=== PATIENT | male | born 1965 | race Caucasian/White ===

== ENCOUNTER 2023-09-05 09:16 | Emergency (ER) | payer OTHER ==
[~2023-09-05] VITALS: Ht 177.8 cm; Wt 77.1 kg
[2023-09-05] MEDS ORDERED: ALBUTEROL FS 2.5 MG/3 ML VIAL.NEB ONE (09:44)
[2023-09-05] MEDS ORDERED: predniSONE 20 MG TABLET ONE (09:44)
[2023-09-05] MEDS ORDERED: IPRATROPIUM NEB FS 0.5 MG/2.5 ML AMPUL.NEB ONE (09:44)
[2023-09-05 09:50] VITALS: O2SAT 94
[2023-09-05] MEDS ORDERED: IPRATROPIUM NEB FS 0.5 MG/2.5 ML AMPUL.NEB NEB ONE (10:00)
[2023-09-05] MEDS ORDERED: ALBUTEROL FS 2.5 MG/3 ML VIAL.NEB NEB ONE (10:00)
[2023-09-05] MEDS ORDERED: predniSONE 20 MG TABLET PO ONE (10:00)
[2023-09-05 10:04] VITALS: O2SAT 100
[2023-09-05] MEDS ORDERED: ALBU18HF2 INH ×4 (11:10→11:36)
[2023-09-05] MEDS ORDERED: ROPI5TAB PO ×4 (11:10→11:36)
[2023-09-05] MEDS ORDERED: ALBU2.5V13 NEB ×4 (11:10→11:36)
[2023-09-05] MEDS ORDERED: PRED50TA PO ×4 (11:10→11:36)
[2023-09-05] MEDS ORDERED: NEBU-171 MC ×4 (11:10→11:36)
[2023-09-05 11:35] VITALS: BP 126/81; TEMP 99.1; O2SAT 100
== END 2023-09-05 11:41 | disposition home or self-care (01) ==
LOC: ER 09:56
DX: J45.909 Unspecified asthma, uncomplicated (principal); Z60.2 Problems related to living alone
CPT/HCPCS: 99283; 94640; J7512